=== PATIENT | male | born 1995 | race African-American/Black ===

== ENCOUNTER 2016-12-18 03:01 | Emergency (ER) | payer SELFPAY ==
[~2016-12-18] VITALS: Ht 172.7 cm; Wt 68.0 kg
--- NOTE | 2016-12-18 03:14 | PHYS DOC ---
Past Medical History Past Medical History: No Pertinent History Past Surgical History: No Surgical History Alcohol Use: None Drug Use: Marijuana Adult General Chief Complaint Chief Complaint: DIZZY/LIGHT HEADED HPI HPI Patient is a 21 year old M who presents with lightheaded and dizziness. Patient states he got off work and was walking home since he was unable to obtain a ride. During his walk home he became lightheaded and dizzy and felt like his past out therefore he called 911 and EMS brought him to the emergency room for further evaluation. Upon arrival patient states his symptoms are improved and feels much better. Patient denies any chest pain returns of breath. Patient denies any nausea/vomiting/diarrhea. Patient has no other complaints. Review of Systems Review of Systems GEN: Denies fevers, chills, sweats HEENT: Denies blurred vision, sore throat CV: Denies chest pain RESP: Denies shortness of air, cough GI: Denies n/v/d NEURO: Lightheaded and dizziness MSK: Denies weakness, joint pain/swelling Current Medications Current Medications Current Medications Medications (Trade) Dose Ordered Sig/Charlette Start Time Stop Time Status Last Admin Dose Admin Sodium Chloride 1,000 ml @ 1,000 mls/hr 1X ONCE 12/18/16 03:30 12/18/16 04:29 12/18/16 03:28 1,000 MLS/HR Allergies Allergies Allergies Coded Allergies Type Severity Reaction Last Updated Verified No Known Drug Allergies 12/10/13 No Physical Exam Physical Exam GEN.: No apparent distress. Alert and oriented. HEENT: Head is normocephalic, atraumatic NECK: Supple. LUNGS: CTAB. HEART: RRR, S1, S2 present. Peripheral pulses intact ABDOMEN: Soft, nontender. Positive bowel sounds. EXTREMITIES: Without any cyanosis. NEUROLOGIC: Normal speech, normal tone PSYCHIATRIC: Normal affect, normal mood. SKIN: No ulcerations Current Patient Data Vital Signs Vital Signs Date Time Temp Pulse Resp B/P (MAP) Pulse Ox O2 Delivery O2 Flow Rate FiO2 12/18/16 03:05 98.9 57 16 122/62 (82) 98 Room Air 98.9 Lab Values Laboratory Tests Test 12/18/16 03:25 White Blood Count 8.1 x10^3/uL (4.0-11.0) Red Blood Count 5.29 x10^6/uL (4.30-5.70) Hemoglobin 15.7 g/dL (13.0-17.5) Hematocrit 46.7 % (39.0-53.0) Mean Corpuscular Volume 88 fL (79-100) Mean Corpuscular Hemoglobin 30 pg (25-35) Mean Corpuscular Hemoglobin Concent 34 g/dL (31-37) Red Cell Distribution Width 13.2 % (11.5-14.5) Platelet Count 174 x10^3/uL (140-400) Neutrophils (%) (Auto) 66 % (31-73) Lymphocytes (%) (Auto) 26 % (24-48) Monocytes (%) (Auto) 6 % (0-9) Eosinophils (%) (Auto) 1 % (0-3) Basophils (%) (Auto) 1 % (0-3) Neutrophils # (Auto) 5.3 x10^3uL (1.8-7.7) Lymphocytes # (Auto) 2.1 x10^3/uL (1.0-4.8) Monocytes # (Auto) 0.5 x10^3/uL (0.0-1.1) Eosinophils # (Auto) 0.1 x10^3/uL (0.0-0.7) Basophils # (Auto) 0.1 x10^3/uL (0.0-0.2) Sodium Level 140 mmol/L (136-145) Potassium Level 3.8 mmol/L (3.5-5.1) Chloride Level 102 mmol/L (98-107) Carbon Dioxide Level 29 mmol/L (21-32) Anion Gap 9 (6-14) Blood Urea Nitrogen 14 mg/dL (8-26) Creatinine 1.0 mg/dL (0.7-1.3) Estimated GFR (Cockcroft-Gault) 115.3 BUN/Creatinine Ratio 14 (6-20) Glucose Level 101 mg/dL (70-99) H Calcium Level 9.4 mg/dL (8.5-10.1) Total Bilirubin 0.7 mg/dL (0.2-1.0) Aspartate Amino Transferase (AST) 27 U/L (15-37) Alanine Aminotransferase (ALT) 23 U/L (16-63) Alkaline Phosphatase 74 U/L (46-116) Total Protein 7.8 g/dL (6.4-8.2) Albumin 4.6 g/dL (3.4-5.0) Albumin/Globulin Ratio 1.4 (1.0-1.7) Laboratory Tests 12/18/16 03:25 Laboratory Tests 12/18/16 03:25 EKG EKG 0310: Sinus bradycardia rate of 57 no STEMI [] Radiology/Procedures Radiology/Procedures [] Course & Med Decision Making Course & Med Decision Making Pertinent Labs and Imaging studies reviewed. (See chart for details) ED course: Patient was seen and examined upon arrival CBC and a CMP were ordered 0403: Patient was reexamined and was sleeping comfortably in the bed, he was aroused discussed results with patient who states he is asymptomatic and is ready go home. MDM: After reviewing the chart, CC/HPI/PMH, physical exam, [lab results], [ radiological results], I do not believe the patient has emergent medical condition warranting further workup and admission at this time. On reexamination the patient is asymptomatic and is no longer having symptoms. Patient is stable for discharge. Additional verbal discharge instructions were provided to the patient and that if symptoms get worse or any new symptoms arise that are worrisome to the patient he is to return to the emergency room immediately [] Dragon Disclaimer Dragon Disclaimer This electronic medical record was generated, in whole or in part, using a voice recognition dictation system. Departure Departure Impression: Primary Impression: Near syncope Disposition: 01 HOME, SELF-CARE Condition: IMPROVED Referrals: NO PCP (PCP) Patient Instructions: Near-Syncope, [id number] Additional Instructions: Please follow up with her family One to 2 days CALLY ALCARAZ DO Dec 18, 2016 03:14
[2016-12-18] MEDS ORDERED: IV NORMAL SALINE 1000ML BAG 1,000 ML IV ONE (03:30)
[2016-12-18 03:36] LABS: BASO # 0.1 x10^3/uL (0.0-0.2); BASO % 1 % (0-3); EOS % 1 % (0-3); HEMATOCRIT 46.7 % (39.0-53.0); HEMOGLOBIN 15.7 g/dL (13.0-17.5); LYMPH # 2.1 x10^3/uL (1.0-4.8); LYMPH % 26 % (24-48); MEAN CORPUSCULAR HEMOGLOBIN 30 pg (25-35); MEAN CORPUSCULAR HGB CONC 34 g/dL (31-37); MEAN CORPUSCULAR VOLUME 88 fL (79-100); MONO % 6 % (0-9); NEUT % 66 % (31-73); PLATELET COUNT 174 x10^3/uL (140-400); RED BLOOD COUNT 5.29 x10^6/uL (4.30-5.70); RED CELL DISTRIBUTION WIDTH 13.2 % (11.5-14.5); WHITE BLOOD COUNT 8.1 x10^3/uL (4.0-11.0)
[2016-12-18 03:47] LABS: CALCIUM 9.4 mg/dL (8.5-10.1); GFR 115.3; POTASSIUM 3.8 mmol/L (3.5-5.1)
[2016-12-18 03:53] LABS: ALBUMIN 4.6 g/dL (3.4-5.0); ALBUMIN/GLOBULIN RATIO 1.4 (1.0-1.7); TOTAL BILIRUBIN 0.7 mg/dL (0.2-1.0); TOTAL PROTEIN 7.8 g/dL (6.4-8.2)
[2016-12-18 04:03] VITALS: BP 111/65
--- NOTE | 2016-12-18 06:11 | EKG ---
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
--- NOTE | 2016-12-18 08:17 | RAD ---
Chest, 2 views, 12/18/2016: History: Dizziness The heart size and pulmonary vascularity are normal. No pulmonary infiltrates are seen. There is no evidence of pleural fluid. IMPRESSION: No acute cardiopulmonary abnormality is detected.
== END 2016-12-18 04:27 | disposition home or self-care (01) ==
LOC: ER 03:01
DX: R55 Syncope and collapse (principal); F12.10 Cannabis abuse, uncomplicated
CPT/HCPCS: 36415; 71020; 80053; 85027; 93005; 96360; 99285; J7030

== ENCOUNTER 2017-03-13 12:34 | Emergency (ER) | payer SELFPAY ==
[~2017-03-13] VITALS: Ht 172.7 cm; Wt 72.6 kg
[2017-03-13 13:00] VITALS: BP 123/60
--- NOTE | 2017-03-13 13:06 | PHYS DOC ---
Past Medical History Past Medical History: No Pertinent History Past Surgical History: No Surgical History Alcohol Use: Occasionally Drug Use: Marijuana Adult General Chief Complaint Chief Complaint: LOWER BACK PAIN OR INJURY HPI HPI Patient is a 21 year old male presents the ED complaining of rib injury 2 days. Patient states he was playing football with his little brother and when he fell he injured his left ribs. Describes the pain as sharp. Rates the pain as 7/10. Denies chest pain, shortness of breath, dizziness, weakness, head/neck injury, LOC, vision changes or nausea/vomiting. Review of Systems Review of Systems Constitutional: Denies fever or chills [] Eyes: Denies change in visual acuity, redness, or eye pain [] HENT: Denies nasal congestion or sore throat [] Respiratory: Denies cough or shortness of breath [] Cardiovascular: No additional information not addressed in HPI [] GI: Denies abdominal pain, nausea, vomiting, bloody stools or diarrhea [] : Denies dysuria or hematuria [] Musculoskeletal: Denies back pain or joint pain [] Integument: Denies rash or skin lesions [] Neurologic: Denies headache, focal weakness or sensory changes [] Endocrine: Denies polyuria or polydipsia [] Current Medications Current Medications Current Medications Medications (Trade) Dose Ordered Sig/Charlette Start Time Stop Time Status Last Admin Dose Admin Ibuprofen (Motrin) 800 mg 1X ONCE 03/13/17 13:15 03/13/17 13:16 DC 03/13/17 13:06 800 MG Allergies Allergies Allergies Coded Allergies Type Severity Reaction Last Updated Verified No Known Drug Allergies 12/10/13 No Physical Exam Physical Exam Constitutional: Well developed, well nourished, no acute distress, non-toxic appearance. [] HENT: Normocephalic, atraumatic, bilateral external ears normal, oropharynx moist, no oral exudates, nose normal. [] Eyes: PERRLA, EOMI, conjunctiva normal, no discharge. [] Neck: Normal range of motion, no tenderness, supple, no stridor. [] Cardiovascular:Heart rate regular rhythm, no murmur [] Lungs & Thorax: Bilateral breath sounds clear to auscultation. MILD LEFT LATERAL RIB TENDERNESS. [] Abdomen: Bowel sounds normal, soft, no tenderness, no masses, no pulsatile masses. [] Skin: Warm, dry, no erythema, no rash. [] Back: No tenderness, no CVA tenderness. [] Extremities: No tenderness, no cyanosis, no clubbing, ROM intact, no edema. [] Neurologic: Alert and oriented X 3, normal motor function, normal sensory function, no focal deficits noted. [] Psychologic: Affect normal, judgement normal, mood normal. [] Current Patient Data Vital Signs Vital Signs Date Time Temp Pulse Resp B/P (MAP) Pulse Ox O2 Delivery O2 Flow Rate FiO2 03/13/17 13:00 98.3 70 20 98 Room Air 98.3 EKG EKG [] Radiology/Procedures Radiology/Procedures PROCEDURE: RIBS LEFT AND PA CHEST RIBS LEFT AND PA CHEST Clinical Indication: Injury, left posterior rib pain Comparison: Chest radiograph dated 12/18/2016. Findings: Normal lung volume. No focal consolidation. Normal pulmonary vasculature. No pleural effusion or pneumothorax. The cardiomediastinal silhouette is normal. No acute osseous abnormality. No displaced rib fracture. IMPRESSION: No acute cardiopulmonary process. No displaced rib fracture.[] Course & Med Decision Making Course & Med Decision Making Pertinent Labs and Imaging studies reviewed. (See chart for details) []X-ray negative for acute injury. Patient's pain improved. Vital stable, no acute distress. Discussed follow-up. Discussed symptomatic treatment. Discussed reasons to return to the ED. Patient understands and agrees with plan. Dragon Disclaimer Dragon Disclaimer This electronic medical record was generated, in whole or in part, using a voice recognition dictation system. Departure Departure Impression: Primary Impression: Rib injury Disposition: 01 HOME, SELF-CARE Condition: IMPROVED Referrals: NO PCP (PCP) DELMIS GARCIA MD Patient Instructions: Rib Contusion Scripts Ibuprofen (IBUPROFEN) 800 Mg Tablet 800 MG PO PRN Q6HRS Y for INFLAMMATION, #20 TAB Prov: PAUL WINSTON 03/13/17 PAUL WINSTON Mar 13, 2017 13:06
[2017-03-13] MEDS ORDERED: IBUPROFEN 800 MG TABLET. PO ONE (13:15)
--- NOTE | 2017-03-13 13:50 | RAD ---
RIBS LEFT AND PA CHEST Clinical Indication: Injury, left posterior rib pain Comparison: Chest radiograph dated 12/18/2016. Findings: Normal lung volume. No focal consolidation. Normal pulmonary vasculature. No pleural effusion or pneumothorax. The cardiomediastinal silhouette is normal. No acute osseous abnormality. No displaced rib fracture. IMPRESSION: No acute cardiopulmonary process. No displaced rib fracture.
[2017-03-13] MEDS ORDERED: IBUP-1060 PO (14:01)
== END 2017-03-13 14:06 | disposition home or self-care (01) ==
LOC: ER 12:34
DX: S29.9XXA Unspecified injury of thorax, initial encounter (principal); W18.39XA Other fall on same level, initial encounter; Y93.61 Activity, american tackle football; Y92.89 Other specified places as the place of occurrence of the external cause; Y99.8 Other external cause status
CPT/HCPCS: 71101; 99284-25

== ENCOUNTER 2019-10-22 22:32 | Emergency (ER) | payer SELFPAY ==
[~2019-10-22] VITALS: Ht 172.7 cm; Wt 80.0 kg
[~2019-10-22 22:32] MED LIST: IBUP-1060 PO
[2019-10-22 22:57] VITALS: BP 121/59
[2019-10-22] MEDS ORDERED: ORPH100T PO (23:00)
[2019-10-22] MEDS ORDERED: METH4TAB2 PO (23:00)
[2019-10-22] MEDS ORDERED: HYDR-3164 PO (23:00)
--- NOTE | 2019-10-22 23:00 | PHYS DOC ---
Past Medical History Past Medical History: No Pertinent History Past Surgical History: No Surgical History Smoking Status: Current Every Day Smoker Alcohol Use: Occasionally Drug Use: Marijuana General Adult EDM: Chief Complaint: MULTIPLE COMPLAINTS HPI: HPI: Patient is a 23 year old male who presents with left upper dental pain that started 2 days ago and low left back pain x 1 week. He states he has been doing yard work for his grand father and now his lower back hurts with a sharp shooting pain down the back of his leg. Denies saddle parenthesis or inconti nence. Rate his pain at a 10/10. Review of Systems: Review of Systems: HENT: Denies nasal congestion or sore throat. Dental pain. [] Musculoskeletal: Left lower back pain or joint pain. [] Heart Score: Risk Factors: Risk Factors: DM, Current or recent (<one month) smoker, HTN, HLP, family history of CAD, obesity. Risk Scores: Score 0 - 3: 2.5% MACE over next 6 weeks - Discharge Home Score 4 - 6: 20.3% MACE over next 6 weeks - Admit for Clinical Observation Score 7 - 10: 72.7% MACE over next 6 weeks - Early Invasive Strategies Allergies: Allergies: Allergies Coded Allergies Type Severity Reaction Last Updated Verified No Known Drug Allergies 12/10/13 No Physical Exam: PE: Constitutional: Well developed, well nourished, no acute distress, non-toxic ap pearance. [] HENT: Normocephalic, atraumatic, bilateral external ears normal, oropharynx moist, no oral exudates, nose normal. Dental caries. [] Eyes: PERRLA, EOMI, conjunctiva normal, no discharge. [] Neck: Normal range of motion, no tenderness, supple, no stridor. [] Cardiovascular:Heart rate regular rhythm, no murmur [] Lungs & Thorax: Bilateral breath sounds clear to auscultation [] Abdomen: Bowel sounds normal, soft, no tenderness, no masses, no pulsatile masses. [] Skin: Warm, dry, no erythema, no rash. [] Back: Left lower back tenderness, no CVA tenderness. [] Extremities: No tenderness, no cyanosis, no clubbing, ROM intact, no edema. [] Neurologic: Alert and oriented X 3, normal motor function, normal sensory function, no focal deficits noted. [] Psychologic: Affect normal, judgement normal, mood normal. [] EKG: EKG: [] Radiology/Procedures: Radiology/Procedures: [] Course & Med Decision Making: Course & Med Decision Making Pertinent Labs and Imaging studies reviewed. (See chart for details) Patient has many dental caries and broken teeth especially to the left upper back molars. It looks like one the wisdom teeth are also trying to come in but there is not enough room for it. Denies fever and is afebrile. No facial swelling and no gumline drainage or tenderness. No tenderness to the cheek or inner mucosa. No trismus. Left low back tenderness with palpation but no focal spinal tenderness. No bruising to his back or deformity. Denies numbness or tingling. Ambulatory with a steady gait. Speaks in full clear sentences. [] Dragon Disclaimer: Dragon Disclaimer: This electronic medical record was generated, in whole or in part, using a voice recognition dictation system. Departure Departure Impression: Primary Impression: Sciatic leg pain Additional Impressions: Low back pain Qualified Codes: M54.41 - Lumbago with sciatica, right side Pain, dental Disposition: HOME, SELF-CARE Condition: STABLE Referrals: NO PCP (PCP) Patient Instructions: Dental Pain, Low Back Strain with [facility], Sciatica with [facility] Additional Instructions: Follow up with primary care provider. Use a heating pad on the back. Follow up with a dentist as soon as possible. Take medication as prescribed and do not drive or drink alcohol with pain medication. Scripts Methylprednisolone (MEDROL) 4 Mg Tab.ds.pk 1 PKG PO UD, #1 PKG Prov: TIFFANY REYES APRN 10/22/19 Orphenadrine Citrate (ORPHENADRINE CITRATE) 100 Mg Tablet.er 1 TAB PO BID, #10 TAB Prov: TIFFANY REYES APRN 10/22/19 Hydrocodone/Apap 5-325 (NORCO 5-325 TABLET) 1 Each Tablet 1 TAB PO PRN Q6HRS PRN for PAIN, #10 TAB 0 Refills Prov: TIFFANY REYES APRN 10/22/19 Justicifation of Admission Dx: Justifications for Admission: Justification of Admission Dx: N/A TIFFANY REYES APRN Oct 22, 2019 23:00
== END 2019-10-22 23:24 | disposition home or self-care (01) ==
LOC: ER 22:32
DX: M54.41 Lumbago with sciatica, right side (principal); K08.89 Other specified disorders of teeth and supporting structures; F17.200 Nicotine dependence, unspecified, uncomplicated; F12.90 Cannabis use, unspecified, uncomplicated
CPT/HCPCS: 99283

== ENCOUNTER 2020-08-01 01:51 | Emergency (ER) | payer SELFPAY ==
[~2020-08-01] VITALS: Ht 172.7 cm; Wt 69.4 kg
[~2020-08-01 01:51] MED LIST changes: +HYDR-3164 PO; +METH4TAB2 PO; +ORPH100T PO
--- NOTE | 2020-08-01 02:35 | PHYS DOC ---
Past Medical History Past Medical History: No Pertinent History Past Surgical History: No Surgical History Smoking Status: Current Every Day Smoker Alcohol Use: Occasionally Drug Use: Marijuana General Adult EDM: Chief Complaint: MULTIPLE TRAUMA/FALL HPI: HPI: Patient is a 24 year old -[place] male with no significant past medical history presents for head injury and possible nasal bone fracture. Patient reports that around 6:30pm yesterday he was playing basketball and got elbowed at the left oriental orthodox. Patient felt dizzy after the injury and had to sit out for 30 minutes. His dizziness went away and patient went back on the courts. During one fast play he went too fast and hit the wall with his face. He started having nasal bleeding which has stopped prior to his arrival at the ER. He is currently having a headache. During the encounter patient was alert and oriented. He says someone dropped him off at the ER. Patient denies fever and chills, chest pain, shortness of air, numbness and tingling in hands and feet, and focal neurologic deficit. Patient is the main historian. Review of Systems: Review of Systems: Review of systems: Constitutional symptoms- No fever, no chills. Nose: Reports nasal bleeding prior arriving to the ER, ports nasal swelling and possible broken nose. Eyes- No Discharge, No Visual Loss Respiratory symptoms- No shortness of breath, No wheezing, No Dyspnea on Exertion Cardiovascular Systems; No chest pain, No Palpitations, No syncope Gastrointestinal symptoms: NO abdominal pain, no nausea, no vomiting or diarrhea. Genitourinary symptoms: No dysuria. Musculoskeletal symptoms: No back pain No extremity pain. NEUROLOGICAL Symptoms: Endorses headache around the left oriental orthodox. Denies change in vision or hearing. No generalized weakness; No focal Weakness Heart Score: C/O Chest Pain: No Risk Factors: Risk Factors: DM, Current or recent (<one month) smoker, HTN, HLP, family history of CAD, obesity. Risk Scores: Score 0 - 3: 2.5% MACE over next 6 weeks - Discharge Home Score 4 - 6: 20.3% MACE over next 6 weeks - Admit for Clinical Observation Score 7 - 10: 72.7% MACE over next 6 weeks - Early Invasive Strategies Allergies: Allergies: Allergies Coded Allergies Type Severity Reaction Last Updated Verified No Known Drug Allergies 12/10/13 No Physical Exam: PE: General: alert, no acute distress. Skin: warm, dry and intact. Head:: Tenderness of the left oriental orthodox and occipital region upon palpation. Nose: Swollen nose, tender upon palpation with no bleeding or discharge. Neck: Trachea midline. Eyes: EOMI, Normal conjunctiva, No drainage CARDIOVASCULAR: Regular rate and rhythm RESPIRATORY: No respiratory distress Back: Full range of motion. MUSCULOSKELETAL: Full range of motion of bilateral upper and lower extremities. GASTROINTESTINAL: Abdomen soft without rebound or guarding. NEUROLOGICAL: Alert and noted to person, place and time. No neurological deficits observed Psychiatric: Cooperative. Normal judgment EKG: EKG: [] Radiology/Procedures: Radiology/Procedures: [] Impression: CT head without contrast: Reason for examination: Head injury. Helical images were obtained through the brain. No contrast was administered. Ventricular systems are symmetric and not dilated. No midline shift is seen. There is no evidence of intracranial hemorrhage, infarct, mass or edema. No abnormalities of seen at the orbits. There is some mucosal disease in the right maxillary antrum. Remaining paranasal sinuses and mastoid air cells are clear. No acute skull abnormality is present. IMPRESSION: No acute intracranial abnormality evident. CT maxillofacial without contrast: Helical images were obtained through the maxillofacial structures with no contrast administered. Reconstruction was performed in sagittal and coronal planes. The paranasal sinuses bilaterally show mucosal thickening in the maxillary antra bilaterally and in a few the ethmoid air cells. The remaining paranasal sinuses are clear. The earl of the paranasal sinuses appear to be intact. The orbital earl also appear to be intact and the orbital structures show no abnormalities. Likely traumatic arches are intact. Nasal bones are intact. No acute abnormality seen at the mandible or at the temporomandibular joints. IMPRESSION: Mucosal thickening in the maxillary antra bilaterally and in a few the ethmoid air cells. No acute facial bone abnormality is evident. Course & Med Decision Making: Course & Med Decision Making Pertinent Labs and Imaging studies reviewed. (See chart for details) [] Patient was evaluated for chief complaint. Work-up consisted of radiologic imaging. CT imaging head and face no acute traumatic injuries. Dragon Disclaimer: Dragon Disclaimer: This electronic medical record was generated, in whole or in part, using a voice recognition dictation system. Departure Departure Impression: Primary Impression: Head contusion Additional Impression: Contusion of nose Disposition: 01 DC HOME SELF CARE/HOMELESS Condition: STABLE Referrals: NO PCP (PCP) Patient Instructions: Facial or Scalp Contusion, Head Injury, Adult MARY ANN MACK DO Aug 01, 2020 02:35
--- NOTE | 2020-08-01 02:39 | RAD ---
CT head without contrast: Reason for examination: Head injury. Helical images were obtained through the brain. No contrast was administered. Ventricular systems are symmetric and not dilated. No midline shift is seen. There is no evidence of intracranial hemorrhage, infarct, mass or edema. No abnormalities of seen at the orbits. There is zulma e mucosal disease in the right maxillary antrum. Remaining paranasal sinuses and mastoid air cells ar e clear. No acute skull abnormality is present. IMPRESSION: No acute intracranial abnormality evident. CT maxillofacial without contrast: Helical images were obtained through the maxillofacial structures with no contrast administered. Jorge nstruction was performed in sagittal and coronal planes. The paranasal sinuses bilaterally show mucosal thickening in the maxillary antra bilaterally and in a few the ethmoid air cells. The remaining paranasal sinuses are clear. The earl of the paranasal sin uses appear to be intact. The orbital earl also appear to be intact and the orbital structures show no abnormalities. Likely traumatic arches are intact. Nasal bones are intact. No acute abnormality se en at the mandible or at the temporomandibular joints. IMPRESSION: Mucosal thickening in the maxillary antra bilaterally and in a few the ethmoid air cells. No acute facial bone abnormality is evident. Exposure: One or more of the following individualized dose reduction techniques were utilized for thi s examination: 1. Automated exposure control 2. Adjustment of the mA and/or kV according to patient size 3. Use of iterative reconstruction technique. Electronically signed by: Mayda Oconnor MD (08/01/2020 2:36 AM) MATTHEW
[2020-08-01] MEDS ORDERED: ACETAMINOPHEN 325 MG TABLET. PO ONE (03:00)
[2020-08-01 03:12] VITALS: BP 105/66
== END 2020-08-01 03:15 | disposition home or self-care (01) ==
LOC: ER 01:51
DX: S00.83XA Contusion of other part of head, initial encounter (principal); S00.33XA Contusion of nose, initial encounter; R42 Dizziness and giddiness; F17.200 Nicotine dependence, unspecified, uncomplicated; F12.90 Cannabis use, unspecified, uncomplicated; W21.05XA Struck by basketball, initial encounter; Y93.89 Activity, other specified; Y92.89 Other specified places as the place of occurrence of the external cause; Y99.8 Other external cause status
CPT/HCPCS: 70450; 70486; 99285